=== PATIENT | female | born 1980 | race Two or more races ===

== ENCOUNTER 2020-06-15 09:12 | Inpatient (IN) | payer BC, MEDICAID ==
[~2020-06-15] VITALS: Ht 160 cm; Wt 67.1 kg
[2020-06-15] MEDS ORDERED: SODIUM CHLORIDE 0.9% 1,000 ML IV ONE ×2 (09:45)
[2020-06-15 10:15] LABS: Basophils # (auto) 0 10 ^3/uL (0-0.2); Eosinophils # (auto) 0 10 ^3/uL (0-0.8); Hemoglobin 13.5 g/dL (12.2-16.2); Lymphocytes # (auto) 1.3 10 ^3/uL (0.4-5.4); Mean Corpuscular Volume 81.2 fL (80.0-100.0); Monocytes # (auto) 0.3 10 ^3/uL (0-1.3); Neutrophils # (auto) 1.9 10 ^3/uL (1.6-8.6)
[2020-06-15 10:18] LABS: Basophils % (auto) 0.2 % (0.0-2.0); Eosinophils % (auto) 0.6 % (0.0-7.0); Hematocrit 39.7 % (36.0-46.0); Lymphocytes % (auto) 37.1 % (10.0-50.0); Mean Corpuscular Hemoglobin 27.6 pg (28.0-32.0); Mean Corpuscular Hgb Conc. 33.9 g/dL (32.0-36.0); Monocytes % (auto) 7.7 % (0.0-12.0); Neutrophils % (auto) 54.4 % (37.0-80.0); Nucleated Red Blood Cells % 0.5 %; Platelet Count (auto) 167 10^3/uL (140-450); Red Blood Cells 4.89 10^6/uL (4.0-5.20); Red Cell Distribution Width 14.8 % (11.8-14.3); White Blood Cell 3.4 10^3/uL (4.4-10.8)
[2020-06-15 10:38] LABS: Albumin 3.7 g/dL (3.4-5.0); Calcium 8.6 mg/dL (8.5-10.1); Potassium 3.5 mmol/L (3.5-5.1)
[2020-06-15 10:42] LABS: BUN/Creatinine Ratio 11.8; Bilirubin, Total 0.3 mg/dL (0.2-1.0); Total Protein 8.2 g/dL (6.4-8.2)
[2020-06-15 10:54] LABS: Urine Bacteria FEW /hpf (None Seen); Urine Blood 3+ /uL (Negative); Urine Specific Gravity 1.018 (1.001-1.035); Urine WBC 7 /hpf (0 - 5)
[2020-06-15] MEDS ORDERED: ONDANSETRON HCL 4 MG/2 ML VIAL IV ONE (11:15)
[2020-06-15] MEDS ORDERED: MORPHINE SULFATE 4 MG/ML SYR/VIAL IV ONE (11:15)
[2020-06-15] MEDS ORDERED: MORPHINE SULFATE 4 MG/ML SYR/VIAL ONE (11:17)
[2020-06-15] MEDS ORDERED: ONDANSETRON HCL 4 MG/2 ML VIAL ONE (11:17)
[2020-06-15] MEDS ORDERED: cefTRIAXone 1GM/50ML D5W 50 ML IV ONE (12:00)
[2020-06-15] MEDS ORDERED: metroNIDAZOLE 500MG/100ML 100 ML IV ONE (14:30)
[2020-06-15] MEDS ORDERED: AZITHROMYCIN 500MG/ 250ML 250 ML IV ONE (14:30)
[2020-06-15] MEDS ORDERED: NITROGLYCERIN 0.4 MG SL TAB SL PRN (14:45)
[2020-06-15] MEDS ORDERED: ACETAMINOPHEN 500 MG TAB PO PRN (14:45)
[2020-06-15] MEDS ORDERED: MORPHINE SULF INJ 2 MG/ML SYRINGE 1ML IV PRN ×2 (14:45)
[2020-06-15] MEDS ORDERED: SODIUM CHLORIDE 0.9% 1,000 ML IV SCH (14:45)
[2020-06-15] MEDS ORDERED: HYDROcodone-ACET 5/325MG TAB PO PRN (14:45)
[2020-06-15] MEDS: ACETAMINOPHEN 500 MG TAB PO PRN (15:10)
[2020-06-15 15:28] LABS: Magnesium 2.7 mg/dL (1.6-2.6)
[2020-06-15 15:37] LABS: CRP High Sensitivity 1.73 mg/dL (< 0.3)
--- NOTE | 2020-06-15 15:50 | NUR ---
Telemetry admit from ER CHRISTOS SILVA admitted to Telemetry unit after SBAR received. Patient oriented to NIDIA ALVAREZ RN primary RN, unit, room, bed, and unit policies regarding patient care and visiting hours. Patient now on continuous telemetry monitoring, tele box #6 and telemetry reading on arrival to unit is SR. Patient placed on bedside oxygen, weighed by bedscale and encouraged to call if they need something. All questions and concerns addressed, patient verbalized understanding.
[2020-06-15 17:00] VITALS: BP 97/62
--- NOTE | 2020-06-15 19:18 | NUR ---
Opening Shift Note Assumed care of patient, awake, alert and oriented x4, on 2L of oxygen via NC with even and unlabored respirations, no S/S of distress/SOB or pain. Patient able to ambulate independently, bed in lowest locked position, side rails up x2, and call light within reach. Instructed on POC and to call for assist PRN, will continue to monitor for changes Q1hr and PRN.
[2020-06-15] MEDS: ONDANSETRON HCL 4 MG/2 ML VIAL IV PRN (20:04)
[2020-06-15 22:00] VITALS: BP 104/67
[2020-06-15] MEDS: DOXYCYCLINE 100 MG TAB/CAP PO SCH (22:08)
[2020-06-16 05:00] VITALS: BP 95/49
[2020-06-16 06:09] LABS: Basophils # (auto) 0 10 ^3/uL (0-0.2); Basophils % (auto) 0.2 % (0.0-2.0); Eosinophils # (auto) 0 10 ^3/uL (0-0.8); Eosinophils % (auto) 1.2 % (0.0-7.0); Hematocrit 36.6 % (36.0-46.0); Hemoglobin 12.2 g/dL (12.2-16.2); Lymphocytes # (auto) 0.9 10 ^3/uL (0.4-5.4); Lymphocytes % (auto) 21.8 % (10.0-50.0); Mean Corpuscular Hemoglobin 27.1 pg (28.0-32.0); Mean Corpuscular Hgb Conc. 33.2 g/dL (32.0-36.0); Mean Corpuscular Volume 81.6 fL (80.0-100.0); Monocytes # (auto) 0.3 10 ^3/uL (0-1.3); Neutrophils # (auto) 2.8 10 ^3/uL (1.6-8.6); Neutrophils % (auto) 69.8 % (37.0-80.0); Nucleated Red Blood Cells % 0.1 %; Platelet Count (auto) 153 10^3/uL (140-450); Red Blood Cells 4.49 10^6/uL (4.0-5.20); Red Cell Distribution Width 14.8 % (11.8-14.3); White Blood Cell 4.1 10^3/uL (4.4-10.8)
[2020-06-16] MEDS: ACETAMINOPHEN 500 MG TAB PO PRN (06:26)
[2020-06-16 06:33] LABS: Potassium 3.6 mmol/L (3.5-5.1)
[2020-06-16 06:44] LABS: Albumin 3.1 g/dL (3.4-5.0); BUN/Creatinine Ratio 10.5; Bilirubin, Total 0.3 mg/dL (0.2-1.0); Calcium 7.5 mg/dL (8.5-10.1); Total Protein 7.3 g/dL (6.4-8.2)
[2020-06-16 08:58] VITALS: BP 116/58
[2020-06-16] MEDS: FAMOTIDINE 20 MG TAB PO SCH (09:51)
[2020-06-16] MEDS: ENOXAPARIN SOD 40 MG/0.4 ML SYRINGE SC SCH (09:51)
[2020-06-16] MEDS: ASCORBIC ACID 1,000 MG TAB PO SCH (09:51)
[2020-06-16] MEDS: CHOLECALCIFEROL (VITD3) 2,000 UNIT CAP PO SCH (09:51)
[2020-06-16] MEDS: ZINC SULFATE 220mg CAP or TAB PO SCH (09:52)
[2020-06-16] MEDS ORDERED: ENOXAPARIN SOD 40 MG/0.4 ML SYRINGE SC SCH (10:00)
--- NOTE | 2020-06-16 10:25 | NUR ---
CONTACT MD HENDRICKS RN CALLED MD HENDRICKS TO REPORT CRITICAL BLOOD CULTURE RESULT. NO NEW ORDERS RECEIVED AT THIS TIME.
--- NOTE | 2020-06-16 10:32 | NUR ---
IV insertion IV access obtained, via clean sterile technique by inserting 22 gauge catheter at RIGHT HAND after 2 attempt(s). IV secured properly. No trauma to site. Patient tolerated well. IV removal IV DC'd with clean sterile technique, catheter fully intact. Pressure dressing applied to site. Patient tolerated well.
[2020-06-16] MEDS: DexAMETHasone SOD PHOS 10MG/1ML VIAL INJ IV SCH (10:33)
[2020-06-16] MEDS: DOXYCYCLINE 100 MG TAB/CAP PO SCH ×2 (10:34→21:30)
[2020-06-16] MEDS: cefTRIAXone 1GM/50ML D5W 50 ML IV SCH (10:34)
[2020-06-16] MEDS ORDERED: HYDROcodone-ACET 5/325MG TAB PO PRN (12:15)
[2020-06-16] MEDS: ONDANSETRON HCL 4 MG/2 ML VIAL IV PRN ×2 (12:52→17:49)
[2020-06-16 12:53] VITALS: BP 103/68
--- NOTE | 2020-06-16 15:36 | NUR ---
Rec'd call from Olamide at [email or web address] [place] advising the [facility] CM assigned to this patient is Sandra # [phone].
[2020-06-16] MEDS: metroNIDAZOLE 500MG/100ML 100 ML IV SCH ×2 (16:45→21:31)
[2020-06-16] MEDS: traMADol HCL 50 MG TAB PO PRN (16:45)
[2020-06-16 17:00] VITALS: BP 95/56
--- NOTE | 2020-06-16 19:15 | NUR ---
Opening Shift Note Assumed care of patient, awake and alert. No S/S of distress/SOB or pain. Instructed on POC and to call for assist PRN, will continue to monitor for changes Q1hr and PRN. Bed in low position and call light within reach
[2020-06-16 20:03] VITALS: BP 106/53
--- NOTE | 2020-06-16 21:40 | NUR ---
patient educated on how to use IS patient verbalized understanding and was able to remonstrate
[2020-06-16 22:00] VITALS: BP 105/56
[2020-06-17] MEDS: traMADol HCL 50 MG TAB PO PRN (04:57)
[2020-06-17 05:00] VITALS: BP 105/62
[2020-06-17] MEDS: metroNIDAZOLE 500MG/100ML 100 ML IV SCH ×3 (05:41→21:42)
--- NOTE | 2020-06-17 07:21 | NUR ---
Report given to dayshift rn patient denies sob distress or pain
[2020-06-17 09:00] VITALS: BP 105/61
[2020-06-17] MEDS: ONDANSETRON HCL 4 MG/2 ML VIAL IV PRN (09:12)
[2020-06-17] MEDS: cefTRIAXone 1GM/50ML D5W 50 ML IV SCH (09:13)
[2020-06-17] MEDS: DOXYCYCLINE 100 MG TAB/CAP PO SCH ×2 (09:14→21:42)
[2020-06-17] MEDS: ZINC SULFATE 220mg CAP or TAB PO SCH (09:14)
[2020-06-17] MEDS: DexAMETHasone SOD PHOS 10MG/1ML VIAL INJ IV SCH (09:14)
[2020-06-17] MEDS: FAMOTIDINE 20 MG TAB PO SCH (09:14)
[2020-06-17] MEDS: ASCORBIC ACID 1,000 MG TAB PO SCH (09:15)
[2020-06-17] MEDS: ENOXAPARIN SOD 40 MG/0.4 ML SYRINGE SC SCH (09:15)
[2020-06-17] MEDS: CHOLECALCIFEROL (VITD3) 2,000 UNIT CAP PO SCH (09:15)
[2020-06-17] MEDS ORDERED: KETOROLAC TROMETH 30 MG/ML 1ML VIAL IV PRN (09:30)
--- NOTE | 2020-06-17 10:13 | NUR ---
[id number] 06/17/20 - Contacted [facility] casey saw operator Sheridan at [phone]. I provided her with a verbal update on the status of this patient. For discharge planning needs per Sheridan the Out of Area casey saw operator Chely can be reached at ([phone]) fax number [phone].
--- NOTE | 2020-06-17 12:40 | NUR ---
Stool sent for CDiff as ordered.
[2020-06-17] MEDS: PROMETHAZINE HCL 25 MG/ML 1ML IV PRN ×2 (12:41→21:53)
[2020-06-17 13:00] VITALS: BP 101/61
[2020-06-17 17:00] VITALS: BP 96/65
--- NOTE | 2020-06-17 19:00 | NUR ---
Patient care endorsed endorsed care to Shakira rn, patient laying comfortably in bed no acute distress or sob noted. Patient currently on room air and encouraged to continue proning and using IS as ordered she verbalized understanding. Call light within reach.
--- NOTE | 2020-06-17 20:00 | NUR ---
Opening Shift Note Assumed care of patient. Awake, alert and oriented x4. No S/S of distress/SOB or pain. Pt is on room air with even and unlabored respirations. Instructed on POC and to call for assist PRN. Bed locked, in lowest position, call light within reach, side rails up x2. Will continue to monitor for changes Q1hr and PRN.
[2020-06-17 22:00] VITALS: BP 105/60
[2020-06-18 05:00] VITALS: BP 100/62
[2020-06-18] MEDS: metroNIDAZOLE 500MG/100ML 100 ML IV SCH ×2 (06:12→14:42)
--- NOTE | 2020-06-18 07:35 | NUR ---
OPENING NOTE Assumed care of patient from NOC SEGUNDO Rosenberg. No s/s of distress noted, patient on room air no s/s of SOB noted. Bed is in lowest locked position, call light within reach, and side rails up x2. Updated patient on plan of care and patient verbalized understanding.
[2020-06-18 09:00] VITALS: BP 103/64
[2020-06-18] MEDS: DexAMETHasone SOD PHOS 10MG/1ML VIAL INJ IV SCH (09:59)
[2020-06-18] MEDS: FAMOTIDINE 20 MG TAB PO SCH (09:59)
[2020-06-18] MEDS: cefTRIAXone 1GM/50ML D5W 50 ML IV SCH (09:59)
[2020-06-18] MEDS: ZINC SULFATE 220mg CAP or TAB PO SCH (09:59)
[2020-06-18] MEDS: ENOXAPARIN SOD 40 MG/0.4 ML SYRINGE SC SCH (10:00)
[2020-06-18] MEDS: DOXYCYCLINE 100 MG TAB/CAP PO SCH (10:00)
[2020-06-18] MEDS: CHOLECALCIFEROL (VITD3) 2,000 UNIT CAP PO SCH (10:00)
[2020-06-18] MEDS: ASCORBIC ACID 1,000 MG TAB PO SCH (10:00)
--- NOTE | 2020-06-18 10:10 | NUR ---
physician rounding DR. Gilliland at bedside. MD updated patient on plan of care, per MD if patients c-dif result is negative patient can be DC'd. Patient verbalized understanding. Patient stated not having a PCP, per MD patient should be referred to [facility] for PCP arrangement. Will follow through.
--- NOTE | 2020-06-18 10:16 | NUR ---
called [facility] called [facility] Dee [facility] regarding patient not having pcp. Per Dee Dee she will be contacting patient today for set up. Will inform patient.
[2020-06-18] MEDS ORDERED: METR500T PO (10:19)
[2020-06-18] MEDS ORDERED: ASCO10003 PO (10:19)
[2020-06-18] MEDS ORDERED: PROM25TA5 PO (10:19)
[2020-06-18] MEDS ORDERED: CHOL1CAP47 PO (10:19)
[2020-06-18] MEDS ORDERED: ZINC220T6 PO (10:19)
[2020-06-18] MEDS ORDERED: LEVO-28 PO (10:19)
[2020-06-18] MEDS: PROMETHAZINE HCL 25 MG/ML 1ML IV PRN ×2 (10:28→14:43)
[2020-06-18 13:00] VITALS: BP 104/65
[2020-06-18 15:42] VITALS: BP 104/65
--- NOTE | 2020-06-18 16:45 | NUR ---
Prescriptions New medications from [facility] brought to nurses station. Will provide them to patient.
--- NOTE | 2020-06-18 17:39 | NUR ---
discharge note Discharge instructions given as ordered. Encourage to follow up with PMD as instructed. All questions and concerns addressed. Patient verbalized understanding. Medications from [facility] given to patient. IV removed with catheter intact, pressure dressing applied. Patient taken to vehicle via wheelchair with all personal belongings, accompanied by staff member. No distress noted at time of departure.
== END 2020-06-18 19:10 | disposition home or self-care (01) | DRG 177 ==
LOC: ER 09:12 → TELE 14:50 → TELE-EAST 15:59 → EAST 06-16 12:08
PROVIDERS: ADMIT Nurse Practitioner Acute Care; ATTEND Internal Medicine
DX: U07.1 COVID-19 (principal); J12.89 Other viral pneumonia; K57.92 Diverticulitis of intestine, part unspecified, without perforation or abscess without bleeding; M79.3 Panniculitis, unspecified; E86.0 Dehydration
CPT/HCPCS: 36415; 71045; 74176; 80053; 81001; 82728; 83615; 83690; 83735; 84443; 85025; 86141; 87040; 87077; 87086; 87186; 87426; 87493; 87804; G0378; J0696; J1100; J1885; J2405; J3490